=== PATIENT | female | born 1970 | race Caucasian/White ===

== ENCOUNTER 2022-05-14 10:25 | Emergency (ER) | payer OTHER ==
[~2022-05-14] VITALS: Ht 157.5 cm; Wt 72.6 kg
[2022-05-14 10:40] VITALS: BP_SYST 154
--- NOTE | 2022-05-14 10:40 | NUR ---
Patient to ER bed 4 to gown for evaluation. Side rails up. Report given to Sam JACKSON.
--- NOTE | 2022-05-14 10:41 | NUR ---
ERMD AT BEDSIDE AT THIS TIME
[2022-05-14 11:09] LABS: BASOPHILS % (AUTO) 0.5 % (0.0-2.0); EOSINOPHILS # (AUTO) 0.2 K/uL (0.0-0.4); EOSINOPHILS % (AUTO) 3.2 % (0.0-4.0); HEMATOCRIT 40.1 % (36-48); HEMOGLOBIN 13.7 g/dL (12.0-16.0); LYMPHOCYTES # (AUTO) 2.1 K/uL (1.0-5.5); LYMPHOCYTES % (AUTO) 29.7 % (20.5-51.5); MEAN CORPUSCULAR HEMOGLOBIN 29 pg (27-31); MEAN CORPUSCULAR HGB CONC 34 % (32-36); MEAN CORPUSCULAR VOLUME 85 fL (79.0-98.0); MONOCYTES # (AUTO) 0.3 K/uL (0.0-1.0); NEUTROPHILS # (AUTO) 4.4 K/uL (1.8-7.7); NEUTROPHILS % (AUTO) 62.6 % (40.0-70.0); PLATELET COUNT (AUTO) 235 K/uL (130-430); RED BLOOD CELL COUNT(AUTO) 4.74 MIL/uL (4.2-6.2); RED CELL DISTRIBUTION WIDTH 14.1 % (9.0-15.0)
--- NOTE | 2022-05-14 11:09 | NUR ---
PT IS OFF TO CT AT THIS TIME
[2022-05-14 11:16] LABS: ANION GAP 4 (5-15); CALCIUM 8.2 mg/dL (8.4-11.0); CHLORIDE 99 mmol/L (98-107); GLUCOSE 283 mg/dL (70-99); POTASSIUM 4.2 mmol/L (3.5-5.1); SODIUM SERUM 133 mmol/L (136-145); UREA NITROGEN, BLOOD 12 mg/dL (8-21)
[2022-05-14 11:22] LABS: BILIRUBIN,URINE NEGATIVE (NEGATIVE); BLOOD, URINE NEGATIVE (NEGATIVE); CLARITY/URINE CLEAR (CLEAR); COLOR,URINE YELLOW (YELLOW); GLUCOSE,URINE 2+ (NEGATIVE); KETONES,URINE NEGATIVE (NEGATIVE); LEUKOCYTE ESTERASE ,URINE 1+ (NEGATIVE); NITRITE, URINE NEGATIVE (NEGATIVE); PH,URINE 5.5 (5.0-8.0); PROTEIN URINE NEGATIVE (NEGATIVE); UROBILINOGEN,URINE 0.2 (0.2-1.0)
[2022-05-14 11:23] LABS: ALANINE AMINOTRANSFERASE 18 U/L (12-78); ALBUMIN 3.5 g/dL (3.4-4.8); AMYLASE 37 U/L (0-100); ASPARTATE AMINOTRANSFERASE 15 U/L (10-37); LIPASE 92 U/L (73-393); TOTAL BILIRUBIN 0.6 mg/dL (0.0-1.0)
[2022-05-14 11:25] LABS: C-REACTIVE PROTEIN QUANT < 0.2 mg/dL (0-0.5); GFR AFRICAN AMERICAN 113 mL/min (>90)
[2022-05-14 11:58] LABS: BACTERIA,URINE RARE /HPF (None Seen); RBC,URINE 0-3 /HPF (0-3)
[2022-05-14] MEDS ORDERED: IBUP-1969 PO (12:20)
[2022-05-14] MEDS ORDERED: HYDR-3917 PO (12:20)
[2022-05-14 12:59] VITALS: BP_SYST 154
--- NOTE | 2022-05-14 13:02 | NUR ---
Patient given written and verbal discharge instructions and verbalizes understanding. ER MD discussed with patient the results and treatment provided. Patient in stable condition. ID arm band removed. Rx of Hydrocodone and Ibuprofen given. Patient educated on pain management and to follow up with PMD. Pain Scale 2/10. Opportunity for questions provided and answered. Medication side effect fact sheet provided.
== END 2022-05-14 12:59 | disposition home or self-care (01) ==
LOC: SED 10:25
DX: R10.9 Unspecified abdominal pain (principal)
CPT/HCPCS: 36415; 76376; 80053; 81000; 81025; 82150; 83605; 83690; 84703; 85025; 86140; 87086; 99284

== ENCOUNTER 2023-12-23 09:39 | Day surgery (SDC) | payer OTHER ==
[~2023-12-23] VITALS: Ht 154.9 cm; Wt 73.5 kg
[~2023-12-23 09:39] MED LIST: HYDR-3917 PO; IBUP-1969 PO; IOHEXOL 300 mgI/mL, 50 mL INFUS..BTL IV ONE; LIDOCAINE 2%, 20 ML MDV ONE; NORMAL SALINE 10 ML VIAL ONE; methylPREDNISolone ACETATE 40 MG/ML ONE
[2023-12-23] MEDS: DIPHENHYDRAMINE INJ 50 MG/ML VIAL ONE (14:01)
[2023-12-23] MEDS: fentaNYL CITRATE/PF 100 MCG/2 ML AMP ONE (14:02)
[2023-12-23] MEDS: MIDAZOLAM HCL 5 MG/5 ML VIAL ONE (14:03)
[2023-12-23 15:01] VITALS: O2SAT 98
[2023-12-23 15:46] VITALS: BP_SYST 139; PULSE 83; RESP 16; TEMP 98.1
== END 2023-12-23 15:37 | disposition home or self-care (01) ==
LOC: SDS 09:39 → SMU 09:40 → SDS 15:37
PROVIDERS: ATTEND Internal Medicine
DX: M50.13 Cervical disc disorder with radiculopathy, cervicothoracic region (principal); M25.511 Pain in right shoulder; E11.9 Type 2 diabetes mellitus without complications; Z79.4 Long term (current) use of insulin; Z79.899 Other long term (current) drug therapy
CPT/HCPCS: 62321; 82948; J1200; J1030; J2250; J3010; Q9967; 76000; J2001